=== PATIENT | male | born 1970 | race Caucasian/White ===

== ENCOUNTER → 2016-08-18 | Outpatient (CLI) | payer OTHER ==
[~2016-08-18] MED LIST: ABILIFY PO; ADVAIR 250-501 EACH IH; ADVAIR 2501 DISK W/D; ADVAIR 500-501 EACH IH; ALBUTEROL; ALBUTEROL17 G1; ALBUTEROL17 GM INH; ALPRAZOLAM; AMOXICILLIN PO; ANABUSE PO; BACITRACIN-POLY15 GM TOP; BISOPROLOL/HCTZ1 TA3 PO; BP PILL; CATAPRES0.1 MG PO; CLONIDINE HCL0.1 MG PO; DICLOFENAC; DICLOFENAC PO; DOXEPIN HCL150 MG PO; DOXEPIN HCL50 MG PO; DOXEPIN PO; FAMOTIDINE PO; FLEXERIL PO; FLEXERIL10 MG PO; HYDROCODON-ACE1 EAC1 PO; IBUPROFEN800 MG PO; KEFLEX PO; KEPPRA500 M2 PO; KLONOPIN PO; KLONOPIN1 MG PO; LIBRAX CAPSULE1 CA1 PO; LIDODERM30 EA TOP; LITHIUM; LITHIUM CARBON300 M1 PO; LITHIUM PO; LORTAB 7.5-5001 TAB PO; MOBIC PO; NEURONTIN PO; NEURONTIN600 MG PO; NORCO 10-325 TA1 TAB PO; PHENERGAN PO; PHENERGAN PR; PHENERGAN25 M1; PRILOSEC20 MG PO; PRILOSEC40 MG PO; REMERON30 MG PO; ROBAXIN; RONDEC-DM ORAL30 ML PO; SEROQUEL PO; SEROQUEL25 MG PO; SEROQUEL300 M1 PO; SEROQUEL50 MG PO; TRAMADOL HCL50 M1 PO; TRAZODONE HCL100 MG PO; ULTRAM PO; VICODIN 5/1 TAB 5/50 PO; VICODIN 5/500 T1 TAB PO; XANAX0.5 MG PO; XANAX1 MG PO; ZITHROMAX1 G/PKT PO; ZOFRAN ODT4 MG PO
--- NOTE | ~2016-08-18 | CT69 ---
[facility] A Service of [facility] RADIOLOGY TEXT RESULTS PATIENT: MELVIN THRASHER LOCATION: [facility] : 74 UNIT #: [id number] AGE: [address]: Malinda Ye MD SEX: M ORDER DR: [id number] [facility]. [place], [place] [address] [id number] O MR#: [id number] Acc #: [id number] NAME: MELVIN THRASHER : 1970 SEX: M STUDY DATE/TIME: 08/18/2016 9:37 UNIT: [facility] ROOM: STUDY DESCRIPTION: CT Head W Contrast Attending Physician: Malinda Ye M.D. Referring Physician: Malinda Ye M.D. Ordering Physician: Malinda Ye M.D. Primary Care Physician: Malinda Ye M.D. MEDICAL IMAGING REPORT This report is preliminary unless electronic signature is present EXAM Head CT with contrast HISTORY Asymmetric eye size. Left eye ptosis on physical examination a week ago. No headache. Patient has watering right eye complaint. No cancer history. TECHNIQUE This CT exam was performed with one or more of the following radiation dose reduction techniques: automatic control, adjustment of mA and/or kV according to patient size, and iterative reconstruction. COMMENT CT of the head performed during the intravenous administration of 100 mL of Isovue 370. There is a comparison head CT from 07/20/2014 without contrast. There is no extraaxial fluid collection. The ventricles are normal in size and configuration. The richey white junction is well maintained. Contrast enhanced study is less sensitive for acute intracranial hemorrhage. No pathologic intracranial enhancement is appreciated and no intracranial mass lesion is suspected. If there is clinical concern for CVA, consider correlation with an MRI if patient is a candidate. Basilar cisterns are patent. Minor mucosal thickening in the paranasal sinuses. Mastoid air cells are relatively underpneumotized. IMPRESSION 1. Essentially normal contrast enhanced head CT. [facility] A Service [facility] RADIOLOGY TEXT RESULTS PATIENT: MELVIN THRASHER LOCATION: [facility] : 74 UNIT #: [id number] AGE: [address]: Malinda Ye MD SEX: M ORDER DR: Dictated by... Digna Zhu M.D. THIS IS AN ELECTRONICALLY VERIFIED REPORT Digna Zhu M.D. at 08/21/2016 8:11 AM ALBARO/jesus alberto TD: 08/18/2016 22:43 JOB #: [id number] MEDICAL IMAGING REPORT Page 1 of 1 COPY
[2016-08-18 10:35] LABS: POC - CREATININE 0.73 mg/dL (0.64-1.27); POC - GFR >60.0 mL/min (>60)
== END | disposition home or self-care (01) ==
LOC: CCAT 09:08
PROVIDERS: Internal Medicine
DX: H02.402 Unspecified ptosis of left eyelid (principal); H57.8 Other specified disorders of eye and adnexa
CPT/HCPCS: 70460; 82565; Q9967